=== PATIENT | male | born 2000 | race Caucasian/White ===

== ENCOUNTER 2020-02-29 19:08 | Emergency (ER) | payer BC ==
[~2020-02-29] VITALS: Ht 170.2 cm; Wt 75.0 kg
== END 2020-02-29 19:26 | disposition home or self-care (01) ==
LOC: ER 19:10
DX: J02.9 Acute pharyngitis, unspecified (principal); R53.83 Other fatigue; R51.9 Headache, unspecified; R05 Cough; Z20.828 Contact with and (suspected) exposure to other viral communicable diseases
CPT/HCPCS: 36415; 99282